=== PATIENT | female | born 1950 | race African-American/Black ===

== ENCOUNTER 2017-07-04 09:53 | Day surgery (SDC) | payer OTHER ==
[2017-07-03 13:17] VITALS: BMI 22.6
[2017-07-04] MEDS ORDERED: PROPOFOL 20 ML ONE ×2 (10:49)
[2017-07-04] MEDS ORDERED: ETOMIDATE 20 MG/10 ML AMPUL IVPUSH ONE (10:49)
[2017-07-04] MEDS ORDERED: LIDOCAINE VISCOUS 2% ORAL/TOP 20 ML UNIT-DOSE CUP ONE (11:07)
[2017-07-04] MEDS ORDERED: ePHEDrine SULFATE 50 MG/1 ML AMPULE ONE (11:11)
[2017-07-04] MEDS ORDERED: LIDOCAINE HCL/PF 2% SDV 5ML VIAL ONE (11:11)
[2017-07-04 12:24] VITALS: TEMP 97.6
[2017-07-04 13:00] VITALS: BP 145/83; PULSE 59
--- NOTE | 2017-07-08 18:04 | PATH ---
Surgical Pathology Report Patient Name: EPIFANIO CEDEÑO [facility]. Rec. #: [id number] /Age/Gender: 1950 (Age: 67) / F Account: [id number] Location: [facility]-ENDOSCOPY Taken: 07/04/2017 Received: 07/04/2017 Reported: 07/08/2017 Physicians: Virginia Hooper M.D. Specimen(s) Received A: BX 2ND PORTION DUODENUM & BULB B: BX ANTRUM C: BX SIGMOID ULCER AT 35 CM D: BX ILEOCECAL VALVE POLYP E: SPLENIC FLEXURE BIOPSY Clinical History Colon cancer screening, occult GI bleeding, rule out ulcer Postoperative diagnosis: Hemorrhagic gastritis, ileocecal valve polyp, colon ulcers rule out ischemic colitis left colon Final Diagnosis A. DUODENUM, SECOND PORTION AND BULB, BIOPSY: DUODENAL MUCOSA WITHOUT SIGNIFICANT PATHOLOGIC FINDINGS. B. STOMACH, ANTRUM, BIOPSY: GASTRIC ANTRAL MUCOSA WITH SEVERE CHRONIC ACTIVE GASTRITIS AND INTESTINAL METAPLASIA. IMMUNOHISTOCHEMICAL STAIN FOR H. PYLORI IS POSITIVE (MANY). C. SIGMOID COLON, 35 CM, BIOPSY: COLONIC MUCOSA WITH ACUTE COLITIS, ULCERATION, REACTIVE CHANGES, AND PROMINENT LYMPHOID AGGREGATE. D. ILEOCECAL VALVE, POLYPECTOMY: TUBULAR ADENOMA. E. COLON, HEPATIC FLEXURE, BIOPSY: COLONIC MUCOSA WITH ACUTE COLITIS, ULCERATION, REACTIVE CHANGES, AND PROMINENT LYMPHOID AGGREGATE. Comment: Findings are non-specific. Differential diagnoses include: acute self-limited colitis, infection, medication, bowel preparation artifact, ischemic colitis and early in inflammatory bowel disease. Suggest clinical/radiologic correlation. Electronically Signed Jane Schroeder M.D. Gross Description A. Received in formalin, labeled "biopsy second portion of duodenum and bulb" are 2 elias, irregular portions of soft tissue measuring 0.3 and 0.4 cm. in greatest dimension. The specimens are submitted in toto in one cassette. B. Received in formalin, labeled "biopsy antrum" are 3 elias, irregular portions of soft tissue ranging from 0.3-0.4 cm. in greatest dimension. The specimens are submitted in toto in one cassette. C. Received in formalin, labeled "biopsy sigmoid ulcer at 35 cm" is a elias, irregular portion of soft tissue measuring 0.4 cm. in greatest dimension. The specimen is submitted in toto in one cassette. D. Received in formalin, labeled "biopsy ileocecal valve" is a elias, irregular portion of soft tissue measuring 0.4 cm. in greatest dimension. The specimen is submitted in toto in one cassette. E. Received in formalin, labeled "biopsy splenic flexure ulcer" are 3 elias, irregular portions of soft tissue ranging from 0.3-0.5 cm. in greatest dimension. The specimens are submitted in toto in one cassette. 07/04/2017 [facility]07/04/2017
== END 2017-07-04 12:59 | disposition home or self-care (01) ==
LOC: JASU-ENDO 09:53
PROVIDERS: ATTEND Internal Medicine Gastroenterology
PROC: 3E0H8GC Introduction of Other Therapeutic Substance into Lower GI, Via Natural or Artificial Opening Endoscopic (ICD-10-PCS; 2017-07-04)
PROC: 0DB98ZX Excision of Duodenum, Via Natural or Artificial Opening Endoscopic, Diagnostic (ICD-10-PCS; 2017-07-04)
PROC: 0DB68ZX Excision of Stomach, Via Natural or Artificial Opening Endoscopic, Diagnostic (ICD-10-PCS; 2017-07-04)
PROC: 0DBC8ZX Excision of Ileocecal Valve, Via Natural or Artificial Opening Endoscopic, Diagnostic (ICD-10-PCS; principal; 2017-07-04 10:45)
DX: Z12.11 Encounter for screening for malignant neoplasm of colon (principal); R19.5 Other fecal abnormalities; K63.5 Polyp of colon; K55.20 Angiodysplasia of colon without hemorrhage; K63.3 Ulcer of intestine; K64.8 Other hemorrhoids; K29.70 Gastritis, unspecified, without bleeding
CPT/HCPCS: 88305-TC; 88342-TC